=== PATIENT | male | born 1990 | race Two or more races ===

== ENCOUNTER 2022-11-05 14:08 | Emergency (ER) | payer BC ==
[2022-11-05 14:43] LABS: BASOPHILS PERCENT AUTO 0.2 % (0.0-1.5); EOSINOPHILS ABSOLUTE AUTO 0.1 K/uL (0.0-0.7); EOSINOPHILS PERCENT AUTO 1.4 % (0.0-7.0); HEMATOCRIT 40.9 % (38.0-50.0); HEMOGLOBIN 14.9 g/dL (13.0-17.0); LYMPHOCYTES ABSOLUTE AUTO 1.9 K/uL (0.6-2.4); LYMPHOCYTES PERCENT AUTO 31.4 % (16.0-40.0); MEAN CORPUSCULAR HEMOGLOBIN 27.6 pg (27.0-32.0); MEAN CORPUSCULAR HGB CONC 36.4 g/dL (31.0-37.0); MEAN CORPUSCULAR VOLUME 75.9 fL (80.0-98.0); MONOCYTES ABSOLUTE AUTO 0.6 K/uL (0.0-0.8); MONOCYTES PERCENT AUTO 10.5 % (0.0-15.0); NEUTROPHILS ABSOLUTE AUTO 3.3 K/uL (1.4-5.7); NEUTROPHILS PERCENT AUTO 56.5 % (48.0-80.0); NRBC ABSOLUTE 0 K/uL; PLATELET COUNT,PLT 233 K/uL (150-400); RED BLOOD CELL COUNT 5.39 M/uL (4.50-5.90); WHITE BLOOD CELL COUNT,WBC 5.89 K/uL (4.0-11.0)
[2022-11-05 14:53] LABS: ALBUMIN 3.6 g/dL (3.4-5.0); BILIRUBIN TOTAL 0.3 mg/dL (0.2-1.0); CALCIUM 8.7 mg/dL (8.5-10.1); CARBON DIOXIDE,CO2 25.6 mmol/L (21.0-32.0); CREATININE 1.2 mg/dL (0.8-1.3); EST CRCL DRUG DOSING (CG) 92.09 mL/min; POTASSIUM,K 3.8 mmol/L (3.5-5.1); PROTEIN TOTAL,TP 7.2 g/dL (6.4-8.2)
[2022-11-05] MEDS ORDERED: Lactated Ringers 1,000 ML IV STA (15:29)
== END 2022-11-05 16:10 | disposition home or self-care (01) ==
LOC: MW.ED 14:08
DX: R55 Syncope and collapse (principal); Z79.899 Other long term (current) drug therapy; Z86.16 Personal history of COVID-19
CPT/HCPCS: 36415; 71045; 80053; 85025; 93005; 96360; 99285; J7120; 93010; 99283

== ENCOUNTER 2023-04-17 12:37 | Emergency (ER) | payer BC, OTHER ==
[2023-04-17] MEDS ORDERED: Lidocaine 1% 5 ML VIAL INJECT ONE (13:39)
[2023-04-17] MEDS ORDERED: Diphtheria,Pertussis(Acell),Tetanus Vaccine 0.5 ML Syringe IM ONE (13:39)
== END 2023-04-17 14:12 | disposition home or self-care (01) ==
LOC: MW.ED 12:37
DX: S01.81XA Laceration without foreign body of other part of head, initial encounter (principal); Z23 Encounter for immunization; Z86.16 Personal history of COVID-19; W26.8XXA Contact with other sharp object(s), not elsewhere classified, initial encounter; Y92.89 Other specified places as the place of occurrence of the external cause; Y99.0 Civilian activity done for income or pay
CPT/HCPCS: 12013; 90471; 90715; 99283; 99283-25; J3490